=== PATIENT | female | born 1940 | race Caucasian/White ===

== ENCOUNTER 2017-02-13 12:21 | Emergency (ER) | payer OTHER ==
[~2017-02-13] VITALS: Wt 56.8 kg
[~2017-02-13 12:21] MED LIST: MULTIVITAMIN; VITAMINS; [UNRECOGNIZED DRUG - OTHER]
[2017-02-13 13:28] LABS: ADD UMIC YES; UR ASCORBIC ACID 40 mg/dL (NEGATIVE); UR BACTERIA MANY /HPF (NONE SEEN); UR BILIRUBIN (Dip) NEGATIVE (NEGATIVE); UR BLOOD (Dip) 3+ mg/dL (NEGATIVE); UR CLARITY CLOUDY (CLEAR); UR COLOR YELLOW (YELLOW); UR GLUCOSE (Dip) 2+ mg/dL (NEGATIVE); UR KETONES (Dip) NEGATIVE (NEGATIVE); UR LEUKOCYTE ESTERASE (Dip) 3+ Leu/ul (NEGATIVE); UR NITRITE (Dip) POSITIVE (NEGATIVE); UR RBC > 182 /HPF (0-5); UR RENAL EPITHELIAL CELL FEW /HPF (NONE SEEN); UR SPECIFIC GRAVITY (Dip) 1.018 (1.003-1.030); UR TOTAL PROTEIN (Dip) 2+ mg/dl (NEGATIVE); UR UROBILINOGEN (Dip) NEGATIVE (NEGATIVE)
--- NOTE | 2017-02-13 13:41 | ERD ---
ER Documentation Chief Complaint Chief Complaint PAIN WITH URINATION, ONSET 2 DAYS, NO N/V HPI This is a 76-year-old female who presents emergency department today for pain with urination that started this morning. Patient states that she feels like she wants to go and only goes a small amount. States she has also had some constipation but has had a bowel movement within the past 2 days. She states that her stool is very hard. Denies any fevers or chills, vomiting, abdominal pain back pain. ROS All systems reviewed and are negative except as per history of present illness. Medications Home Meds Active Scripts Docusate Sodium* (Colace*) 100 Mg Capsule, 100 MG PO TID, #30 CAP Prov:HELIO MURILLO PA-C 02/13/17 Polyethylene Glycol* (Miralax*) 17 Gm Powd.pack, 17 GM PO DAILY, #14 Prov:HELIO MURILLO PA-C 02/13/17 Cephalexin* (Keflex*) 500 Mg Capsule, 500 MG PO QID for 7 Days, CAP Prov:HELIO MURILLO PA-C 02/13/17 Acetaminophen* (Tylophen*) 500 Mg Capsule, 1 CAP PO Q6H Y for PAIN AND OR ELEVATED TEMP, #30 CAP Prov:HELIO MURILLO PA-C 02/13/17 Reported Medications [Multivitamin] No Conflict Check, DAILY 10/25/10 [Herbal Suplement] No Conflict Check, DAILY 10/25/10 [Vitamins] No Conflict Check 06/01/10 Allergies Allergies: Coded Allergies: Unknown: Unable to obtain (Verified Allergy, Mild, 06/01/10) No Known Allergies (Verified Allergy, 10/25/10) PMhx/Soc History of Surgery: Yes (HYSTERECTOMY, RIGHT BREAST BIOPSY, TUBAL ) Anesthesia Reaction: No Hx Neurological Disorder: No Hx Respiratory Disorders: No Hx Cardiac Disorders: No Hx Psychiatric Problems: No Hx Miscellaneous Medical Probl: No Hx Alcohol Use: No Hx Substance Use: No Hx Tobacco Use: No Physical Exam Vitals Vital Signs Date Time Temp Pulse Resp B/P Pulse Ox O2 Delivery O2 Flow Rate FiO2 02/13/17 12:27 98.7 102 18 183/89 98 Physical Exam Const: NAD Head: Atraumatic Eyes: Normal Conjunctiva ENT: Normal External Ears, Nose and Mouth. Neck: Full range of motion..~ No meningismus. Resp: Clear to auscultation bilaterally Cardio: Regular rate and rhythm, no murmurs Abd: Soft, non tender, non distended. Normal bowel sounds Skin: No petechiae or rashes Back: No midline or flank tenderness. NO CVA Ext: No cyanosis, or edema Neur: Awake and alert Psych: Normal Mood and Affect Results 24 hrs Laboratory Tests Test 02/13/17 13:00 Urine Color YELLOW Urine Clarity CLOUDY Urine pH 6.0 Urine Specific Chancellor 1.018 Urine Ketones NEGATIVEmg/dL Urine Nitrite POSITIVEmg/dL Urine Bilirubin NEGATIVEmg/dL Urine Urobilinogen NEGATIVEmg/dL Urine Leukocyte Esterase 3+Candido/ul Urine Microscopic RBC > 182/HPF Urine Microscopic WBC 170/HPF Urine Renal Epithelial Cells FEW/HPF Urine Bacteria MANY/HPF Urine Hemoglobin 3+mg/dL Urine Glucose 2+mg/dL Urine Total Protein 2+mg/dl Current Medications Medications (Trade) Dose Ordered Sig/Lul Route PRN Reason Start Time Stop Time Status Last Admin Dose Admin Cephalexin (Keflex) 500 mg ONCE ONCE PO 02/13/17 14:00 02/13/17 14:01 DC 02/13/17 13:51 Procedures/MDM This is a 76-year-old female who presents emergency department today complaining of pain with urination that started this morning. States that she does have a primary care doctor Dr. Renae but was unable to be seen as he was at a meeting today. Patient denies any abdominal pain on physical exam although she did report difficulties with having bowel movements. She did report having a bowel movement within the past 2 days and denies any abdominal pain. She no abdominal pain on physical exam. She is afebrile and otherwise well-appearing however given patient's complaints I did obtain a UA UA shows positive nitrites, 3+ leukocyte esterase 170 microscopic white blood cells and greater than 182 red blood cells. Symptoms at this time is consistent with urinary tract infection. Urine was sent for culture. Again patient has no abdominal pain on physical exam and she is afebrile and otherwise well-appearing. She has no back pain or CVA tenderness low suspicion for pyelonephritis at this time. Given the significant hematuria cannot rule out nephrolithiasis. I have explained this to the patient. Patient was given her first dose of Keflex here in the emergency department. She will be given a prescription for Keflex, Tylenol, MiraLAX and Colace for home. I have low suspicion for acute surgical abdomen given her physical exam and no complaints of abdominal pain. Low suspicion for bowel obstruction. At this time the patient is stable for discharge and outpatient management. Patient should follow up with their PCP in the next 1-2 days. They may return to the emergency department sooner for any persistent or worsening of symptoms. Patient understood and agreed with the plan. Discussed the patient with Dr. Parr and he is in agreement with the plan Departure Diagnosis: Primary Impression: UTI (urinary tract infection) Urinary tract infection type: site unspecified Hematuria presence: with hematuria Qualified Code: N39.0 - Urinary tract infection with hematuria, site unspecified Condition: Fair HELIO MURILLO PA-C Feb 13, 2017 13:41
[2017-02-13] MEDS ORDERED: CEPHALEXIN 500 MG CAP PO ONE (14:00)
[2017-02-13] MEDS ORDERED: ACET500C5 PO (14:01)
[2017-02-13] MEDS ORDERED: CEPH-443 PO (14:01)
[2017-02-13] MEDS ORDERED: POLY17PO6 PO (14:01)
[2017-02-13] MEDS ORDERED: DOCU-144 PO (14:02)
== END 2017-02-13 14:28 | disposition home or self-care (01) ==
LOC: FTE 12:21
DX: N39.0 Urinary tract infection, site not specified (principal)
CPT/HCPCS: 81001; 87086; 99283